=== PATIENT | male | born 1960 | race Asian ===

== ENCOUNTER 2020-12-12 19:40 | Emergency (ER) | payer OTHER, SELFPAY ==
[~2020-12-12] VITALS: Ht 167.6 cm; Wt 62.6 kg
[2020-12-12 19:56] VITALS: Ht 167.6 cm; Wt 62.6 kg
[2020-12-12 21:37] LABS: BASOPHIL % 0.3 % (0.2-1.5); PLATELET COUNT 296 x10^3mcL (152-348); RED CELL DISTRIBUTION WIDTH 13.6 % (12.1-16.2)
[2020-12-12 21:56] LABS: CALCIUM 9.5 mg/dL (8.5-10.1); CARBON DIOXIDE 26.2 mmol/L (21-32); CREATININE SERUM 1.3 mg/dL (0.7-1.3); POTASSIUM SERUM 4.2 mmol/L (3.5-5.1)
[2020-12-12 22:01] LABS: BILIRUBIN TOTAL 0.58 mg/dL (0.20-1.00); TOTAL PROTEIN, SERUM 9.3 g/dL (6.4-8.2)
[2020-12-12 22:20] LABS: microscopic required? YES; urine erythrocyte 1+ (NEGATIVE)
[2020-12-12] MEDS ORDERED: MORGIDOX 1X100100 MG PO (23:02)
[2020-12-12 23:24] VITALS: BP 137/84
== END 2020-12-12 23:24 | disposition home or self-care (01) ==
LOC: ED 19:40
PROVIDERS: Emergency Medicine
DX: J18.9 Pneumonia, unspecified organism (principal); R73.9 Hyperglycemia, unspecified; Z20.828 Contact with and (suspected) exposure to other viral communicable diseases
CPT/HCPCS: 87804